=== PATIENT | male | born 1960 | race Asian ===

== ENCOUNTER → 2023-03-25 08:42 | Outpatient (REF) | payer OTHER, SELFPAY ==
--- NOTE | 2023-03-25 08:50 | CA_ITS ---
Transthoracic Echocardiogram Patient (Last, First, Middle): Miguel Christiansen, Gender: Male Date of : 1960 Age: 63 Procedure Date: 03/25/2023 Procedure Type: Transthoracic Echocardiogram Location: OP Height: 180.34 cm Weight: 88. 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 The calculated ejection fraction is 61% by biplane method. - No obvious valvular pathology seen on this study. Findings Procedure Information The quality of the study was technically difficult. The study quality is limited by lung artifact. Left Ventricle Normal left ventricular cavity size. There is normal left ventricular wall thickness. The left ventricular systolic function is normal. The calculated ejection fraction is 61% by biplane method. There is no evidence of regional wall motion abnormalities. Diastolic function is normal for age. LV peak GLS -16.5%, but could be underestimation as the apex is not tracked well. Right Ventricle Normal right ventricular cavity size and systolic function. Atria Both atria are normal in size. Aortic Valve There is a normal trileaflet aortic valve. There is no aortic valve stenosis. There is no aortic valve regurgitation. Mitral Valve The mitral valve appears normal. There is no mitral valve regurgitation. There is no mitral valve stenosis. Pulmonic Valve The pulmonic valve is likely normal. Tricuspid Valve Normal tricuspid valve structure. There is trace tricuspid valve regurgitation. There is no evidence of pulmonary hypertension. Great Vessels The asc aorta and aortic arch are normal in size. Venous The inferior vena cava was not well visualized. Pericardium/Pleural There is no evidence of pericardial effusion. Prior Study Comparison No prior study available for comparison. Recommendations, Care & Conclusions No obvious valvular pathology seen on this study. Measurements 2D Linear Measurements IVSd: 0.98 0.6-0.9/0.6-1.0 cm LVIDd: 5.67 3.9-5.3/4.2-5.9 cm LVIDd Index: 2.73 2.4-3.2/2.2-3.1 cm/m2 LVIDs: 3.33 2.0-3.6 cm LVPWd: 0.75 0.7-1.1 cm LA Diam: 4.00 2.7-3.8/3.0-4.0 cm LAIDs Index: 1.92 1.5-2.3 cm/m2 LV Mass: 231.34 67-162/88-224 g LV Mass Index: 111.22 43-95/49-115 g/m2 LVOT Diam: 2.30 3.0+(-)1.3 cm 2D Systolic Function EF 4C: 64.40 >55% EF 2C: 56.20 >55% EF BiP: 61.20 >55% Mitral Valve MV Pk E: 0.68 MV PK A: 0.69 MV Decel Time: 189.00 E/A: 1.00 E'Lateral: 8.27 E'Medial: 6.31 E/E' Med: 10.70 E/E' Lat: 8.20 PHT: 55.00 MVA PHT: 4.00 Decel [place]: 3.58 Aortic Valve AoV Pk Miguel: 1.08 AoV Pk Grad: 5.00 JAVIER: 3.12 LVOT LVOT Pk Miguel: 0.77 LVOT Mn Miguel: 0.56 LVOT VTI: 0.18 LVOT Pk Grad: 2.00 LVOT Mn Grad: 1.00 LVOT Diam: 2.30 LVOT Area: 4.15 Diastolic Function MV Pk E: 0.68 MV Pk A: 0.69 E/A: 1.00 E'Medial: 6.31 E/E' Med: 10.70 E' Laterial: 8.27 E/E' Lat: 8.20 Right Ventricle TAPSE (mm): 21.90 TVS' Miguel: 12.40 Great Vessels Aorta Sinus of Valsalva: 4.30 2.0-3.5 cm Ao Asc: 3.70 2.1-3.4 cm Ao Arch: 3.10 Pulmonary Veins Pulm Vein S/D 1.70 Pulmonary Valve PV Pk Miguel: 1.02 Peak PV Grad: 4.00 Updated in Other Vendor System with Status of Final Juan Street MD electronically signed on 03/26/2023 9:10:02 AM with status of Final
== END ==
LOC: HO.CARD 08:42
PROVIDERS: PCP Internal Medicine; Visit Provider Internal Medicine
DX: C83.38 Diffuse large B-cell lymphoma, lymph nodes of multiple sites (principal)
CPT/HCPCS: 93306; 93356

== ENCOUNTER → 2023-03-25 08:50 | Outpatient (BNV) | payer OTHER, SELFPAY | PROVIDERS: PCP Internal Medicine; Visit Provider Internal Medicine | DX: Z51.81 Encounter for therapeutic drug level monitoring (principal) | CPT/HCPCS: 93306 ==